=== PATIENT | female | born 1945 | race Caucasian/White ===

== ENCOUNTER → 2018-03-16 12:24 | Outpatient (CLI) | payer MEDICARE, BC | END | disposition home or self-care (01) | LOC: D.RAD 12:24 | DX: T17.928A Food in respiratory tract, part unspecified causing other injury, initial encounter (principal) ==

== ENCOUNTER → 2018-04-10 08:50 | Outpatient (CLI) | payer MEDICARE, BC ==
[2018-04-11 10:22] LABS: IMMUNOGLOBULIN A 409 mg/dL (64-422); IMMUNOGLOBULIN G 981 mg/dL (700-1600)
[2018-04-13 03:12] LABS: IMMUNOGLOBULIN E 5 IU/mL (0-100)
== END | disposition home or self-care (01) ==
LOC: D.RT 08:50
PROVIDERS: Internal Medicine Pulmonary Disease
DX: R06.09 Other forms of dyspnea (principal); J42 Unspecified chronic bronchitis; J45.909 Unspecified asthma, uncomplicated

== ENCOUNTER → 2018-08-03 09:28 | Outpatient (CLI) | payer MEDICARE, BC | END | disposition home or self-care (01) | LOC: D.RAD 09:00 | DX: J45.909 Unspecified asthma, uncomplicated (principal) ==

== ENCOUNTER → 2019-02-12 13:04 | Outpatient (CLI) | payer MEDICARE, BC | END | disposition home or self-care (01) | LOC: D.RT 13:04 | PROVIDERS: ATTEND Internal Medicine Pulmonary Disease | DX: J45.909 Unspecified asthma, uncomplicated (principal) ==

== ENCOUNTER 2019-11-11 06:36 | Day surgery (SDC) | payer MEDICARE, BC ==
[~2019-11-11] VITALS: Ht 165.1 cm; Wt 76.4 kg
--- NOTE | ~2019-11-11 | OP ---
PATIENT NAME: NIECY RITTER MEDICAL RECORD: [id number] :45 LOCATION:D[facility] ADMISSION DATE: SURGEON: GABRIELA FLOWERS DO DATE OF OPERATION: 11/11/2019 PROCEDURE: Colonoscopy with polypectomy and random biopsies. INDICATIONS FOR PROCEDURE: Irregular bowel habits, stomach cramps, history of polyps. SCOPE: Olympus video pediatric colonoscope. MEDICATIONS: Propofol 550 mg IV per anesthesia. WITHDRAWAL TIME: 15 minutes. ESTIMATED BLOOD LOSS: Minimal. COMPLICATIONS: None. FINDINGS AND DESCRIPTION OF PROCEDURE: Informed consent was given. The patient was made comfortable with the above medication. After reaching an adequate level of sedation by slow IV push, the patient was placed on her left side. A digital rectal examination was performed and revealed some hemorrhoid tags. The endoscope was advanced under direct visualization through the rectum to the cecum and terminal ileum. The endoscope was slowly withdrawn. Mucosa was carefully examined. The prep quality was good. There were 2 polyps located today. The first was located in the cecum. It was a benign appearing sessile polyp, which measured approximately 2-3 mm in diameter. It was removed using cold forceps. In the rectum, there was another benign appearing sessile polyp, which measured approximately 4-mm in diameter. It was removed using hot forceps. There was evidence of mild diverticulosis involving the sigmoid colon. Retroflexion was performed in the rectum with visualization of grade II internal hemorrhoids without bleeding. Random cold forceps biopsies were taken to submit for histopathology in light of the patient's change in bowel habits. The endoscope was withdrawn from the patient. The patient tolerated the procedure well and there were no complications. IMPRESSION: 1. Two polyps as described above, removed using a combination of cold and hot forceps. 2. Mild diverticulosis of the sigmoid colon. 3. Grade II internal hemorrhoids without bleeding. PLAN AND RECOMMENDATIONS: 1. Discharge home when recovery parameters are met. 2. Follow up biopsy specimen results. 3. High fiber diet. 4. Supplement diet with one tablespoon of fiber daily. 5. Consider trial of dicyclomine for as needed use for loose stools or abdominal pain and cramping. We will discuss this recommendation with the patient and prescribe if she wishes. 6. Can consider a repeat colonoscopy in 5 years' time based on the polyps located on today's examination. Alternatively, it would not be unreasonable if the patient did not wish to have another colonoscopy for screening purposes. OPERATIVE REPORT [id number] RIYANIECY ANN TRANSINT:[id number] Voice Confirmation ID: [id number] DOCUMENT ID: [id number] GABRIELA FLOWERS DO CC: [id number] DICTATION DATE: 11/11/19900 [employer] LE[employer]ER: 11/11/19913 [facility] [address] [id number]
[2019-11-11 07:02] LABS: HEMATOCRIT 48.6 % (36.0-48.0); HEMOGLOBIN 16.2 g/dL (12-16); MCHC 33.3 g/dL (31.0-37.0); MCV 93.1 fL (80.0-100.0); MEAN PLATELET VOLUME 9.9 fL (7.4-10.4); RBC 5.22 10x6/uL (4.00-5.40); RDW 14.1 % (11.5-14.5); WBC 5.4 10x3/uL (4.8-10.8)
[2019-11-11] MEDS ORDERED: ELAVIL25 MG PO (07:22)
[2019-11-11] MEDS ORDERED: ASCORBIC ACID500 MG PO (07:22)
[2019-11-11] MEDS ORDERED: VITAMIN D1000 UNI1 PO (07:23)
[2019-11-11] MEDS ORDERED: CITRACAL + D E1 EACH PO (07:23)
[2019-11-11] MEDS ORDERED: PLAVIX75 MG PO (07:23)
[2019-11-11] MEDS ORDERED: BAYER CHEWABLE81 MG PO (07:23)
[2019-11-11] MEDS ORDERED: BREO ELLIPTA 11 EACH INH (07:23)
[2019-11-11] MEDS ORDERED: LOPRESSOR25 MG PO (07:24)
[2019-11-11] MEDS ORDERED: GLUCOPHAGE500 MG PO (07:24)
[2019-11-11] MEDS ORDERED: NITROSTAT0.4 MG (07:25)
[2019-11-11] MEDS ORDERED: SINGULAIR10 MG PO (07:25)
[2019-11-11] MEDS ORDERED: MIRALAX17 GM PO (07:25)
[2019-11-11] MEDS ORDERED: ONDANSETRON HCL PO (07:25)
[2019-11-11 07:26] LABS: ALBUMIN 3.4 g/dL (3.4-5.0); ANION GAP 13.4 mmol/L (8-16); BILIRUBIN - TOTAL 1.15 mg/dL (0.2-1.3); CALCIUM 9.2 mg/dL (8.5-10.1); CARBON DIOXIDE 26.4 mmol/L (21.0-32.0); POTASSIUM - SERUM 3.8 mmol/L (3.5-5.1); PROTEIN - SERUM 7.3 g/dL (6.4-8.2)
[2019-11-11] MEDS ORDERED: CALAN SR240 MG PO (07:26)
[2019-11-11] MEDS ORDERED: RANEXA500 MG PO (07:26)
[2019-11-11 07:30] LABS: INR 1.04 (0.85-1.17); PROTIME 13.5 SECONDS (11.6-15.0)
[2019-11-11 07:31] LABS: APTT 30.6 SECONDS (22.8-39.4)
[2019-11-11 08:00] VITALS: BP 119/81; Ht 165.1 cm; Wt 76.4 kg
--- NOTE | 2019-11-11 09:29 | NUR ---
0915-RECD TO ROOM, AROUSES AND RETURNS TO SLEEP. RESP WITH EASE. PASSING FLATUS. NOTIFIED OF EXPECTED DISCHARGE TIME.
--- NOTE | 2019-11-11 09:54 | NUR ---
0945-IV D/C AND DISCHARGE INSTRUCTIONS REVIEWED 0950-DR FLOWERS IN TO REPORT FINDINGS. 0954-UP TO BATHROOM, VOIDS AND DRESSED.
--- NOTE | 2019-11-11 10:06 | NUR ---
1005-D/C HOME VIA WHEELCHAIR TO [place] [facility].
== END 2019-11-11 10:05 | disposition home or self-care (01) ==
LOC: D.OPS 06:36
PROVIDERS: Anesthesiology; ATTEND Internal Medicine Gastroenterology
DX: R19.4 Change in bowel habit (principal); R10.9 Unspecified abdominal pain; Z86.010 Personal history of colon polyps; K63.5 Polyp of colon; K62.1 Rectal polyp; J45.909 Unspecified asthma, uncomplicated; E11.9 Type 2 diabetes mellitus without complications; Z79.84 Long term (current) use of oral hypoglycemic drugs; K74.60 Unspecified cirrhosis of liver; R13.10 Dysphagia, unspecified; I85.00 Esophageal varices without bleeding

== ENCOUNTER → 2019-11-19 08:26 | Outpatient (CLI) | payer MEDICARE, BC ==
[2019-11-11 08:00] VITALS: BMI 28.0
[~2019-11-19 08:26] MED LIST: ASCORBIC ACID500 MG PO; BAYER CHEWABLE81 MG PO; BREO ELLIPTA 11 EACH INH; CALAN SR240 MG PO; CITRACAL + D E1 EACH PO; ELAVIL25 MG PO; GLUCOPHAGE500 MG PO; LOPRESSOR25 MG PO; MIRALAX17 GM PO; NITROSTAT0.4 MG; ONDANSETRON HCL PO; PLAVIX75 MG PO; RANEXA500 MG PO; SINGULAIR10 MG PO; VITAMIN D1000 UNI1 PO
== END | disposition home or self-care (01) ==
LOC: D.RAD 11-14 10:30
PROVIDERS: ATTEND Internal Medicine Pulmonary Disease
DX: J45.909 Unspecified asthma, uncomplicated (principal)

== ENCOUNTER 2019-12-02 10:39 | Day surgery (SDC) | payer MEDICARE, BC ==
[~2019-12-02] VITALS: Ht 165.1 cm; Wt 80.5 kg
[2019-12-02 11:11] LABS: APTT 31.2 SECONDS (22.8-39.4); INR 1.01 (0.85-1.17); PROTIME 13.3 SECONDS (11.6-15.0)
[2019-12-02 11:16] LABS: ALBUMIN 3.7 g/dL (3.4-5.0); ANION GAP 10.5 mmol/L (8-16); BILIRUBIN - TOTAL 0.91 mg/dL (0.2-1.3); CALCIUM 9.5 mg/dL (8.5-10.1); CARBON DIOXIDE 28.8 mmol/L (21.0-32.0); CREATININE - SERUM 1.1 mg/dL (0.6-1.3); POTASSIUM - SERUM 4.3 mmol/L (3.5-5.1)
[2019-12-02 11:26] LABS: HEMATOCRIT 49.4 % (36.0-48.0); HEMOGLOBIN 16.8 g/dL (12-16); MCH 32.1 pg (26.0-34.0); MCV 94.5 fL (80.0-100.0); MEAN PLATELET VOLUME 9.5 fL (7.4-10.4); RBC 5.23 10x6/uL (4.00-5.40); RDW 14.2 % (11.5-14.5); WBC 5.8 10x3/uL (4.8-10.8)
[2019-12-02 12:12] VITALS: BP 127/71; Ht 165.1 cm; Wt 80.5 kg
--- NOTE | 2019-12-02 13:30 | NUR ---
DR. WILKINSON NOTIFIED AND REVIEWED PTS BEHAVIOR AND ASSESSMENT RESULTS. PT IS A LOW RISK PER DR. WILKINSON. DR. WILKINSON STATED TO GIVE RESOURCES TO PT AT TIME OF DISCHARGE. NO FURTHER ORDERS AT THIS. RESOURCES REVIEWED WITH PT AND SHE VERBALIZED UNDERSTANDING.
--- NOTE | 2019-12-02 15:10 | NUR ---
DC INSTRUCTIONS GIVEN TO PT. STATES UNDERSTANDING. DC'D IV CATH FULLY INTACT. DC'D PT VIA AT 1519
--- NOTE | 2019-12-03 14:16 | OP ---
PATIENT NAME: NIECY RITTER MEDICAL RECORD: [id number] :45 LOCATION:[facility] ADMISSION DATE: SURGEON: GABRIELA FLOWERS DO DATE OF OPERATION: 12/02/2019 PROCEDURE: EGD with biopsies. INDICATIONS FOR PROCEDURE: Dysphagia, esophageal varices, right upper quadrant abdominal tenderness, stomach cramps. SCOPE: Olympus video gastroscope. MEDICATIONS: Propofol 200 mg IV per anesthesia. ESTIMATED BLOOD LOSS: Minimal. COMPLICATIONS: None. FINDINGS: Informed consent was given. The patient was made comfortable with the above medication. After reaching an adequate level of sedation by slow IV push, the patient was placed on her left side. The endoscope was advanced under direct visualization through the mouth to the second portion of the duodenum. The upper and middle esophagus appeared normal. In the mid to distal esophagus down to the GE junction, there were a few grade I esophageal varices without bleeding stigmata. No interventions were performed. At the GE junction, there were minor changes consistent with LA class A reflux-induced esophagitis. The endoscope was advanced beyond the GE junction into the stomach and retroflexed to view the cardia, which appeared normal. The fundus and body of the stomach also appeared normal. In the antrum and prepyloric region, there was some erythema and granularity consistent with mild chronic gastritis. A cold forceps biopsy was taken from the antrum to submit for histopathology and to rule out the presence of H. pylori. The endoscope was advanced beyond the pylorus into the duodenum, which appeared normal to the second portion. The endoscope was then withdrawn from the patient. The patient tolerated the procedure well and there were no complications. IMPRESSION: 1. Grade I esophageal varices without bleeding stigmata. 2. LA class A reflux-induced esophagitis. 3. Mild chronic gastritis involving the antrum. PLAN AND RECOMMENDATIONS: 1. Discharge home when recovery parameters are met. 2. Follow up biopsy specimen results. 3. GERD diet and reflux precautions. 4. Continue current medications. 5. We discussed patient's symptoms with her post-procedure. I will offer an antacid medication if she wishes for 30-60 days and we will consider gastric emptying scan, which I believe was low yield based on her symptoms. 6. Follow up in GI clinic in 4-6 weeks. 7. Repeat EGD in 2 years for surveillance of esophageal varices. TRANSINT:[id number] Voice Confirmation ID: [id number] DOCUMENT ID: [id number] OPERATIVE REPORT [id number] COUNTS,GABRIELA RIOS DO at 1416 CC: [id number] DICTATION DATE: 12/02/19 1358 PODIATRY TEACHER: 12/02/19 2326 [facility] 12/02/19 [place] [phone]
== END 2019-12-02 15:15 | disposition home or self-care (01) ==
LOC: D.OPS 10:39
PROVIDERS: Anesthesiology; ATTEND Internal Medicine Gastroenterology
DX: R13.10 Dysphagia, unspecified (principal); I85.00 Esophageal varices without bleeding; R10.11 Right upper quadrant pain; R10.9 Unspecified abdominal pain; J45.909 Unspecified asthma, uncomplicated; E11.9 Type 2 diabetes mellitus without complications; Z79.84 Long term (current) use of oral hypoglycemic drugs

== ENCOUNTER → 2020-10-19 12:35 | Outpatient (CLI) | payer MEDICARE, BC ==
[2019-12-02 12:12] VITALS: BMI 29.5
== END | disposition home or self-care (01) ==
LOC: D.LAB 12:35
PROVIDERS: ATTEND Internal Medicine Pulmonary Disease
DX: Z11.52 Encounter for screening for COVID-19 (principal)

== ENCOUNTER → 2020-10-23 09:23 | Outpatient (CLI) | payer MEDICARE, BC ==
[2019-12-02 12:12] VITALS: BMI 29.5
== END | disposition home or self-care (01) ==
LOC: D.RT 09:23
PROVIDERS: ATTEND Internal Medicine Pulmonary Disease
DX: J45.909 Unspecified asthma, uncomplicated (principal)